=== PATIENT | female | born 1980 | race Hispanic/Latino ===

== ENCOUNTER 2023-06-01 10:54 | Emergency (ER) | payer OTHER ==
[2023-06-01] MEDS ORDERED: METOCLOPRAMIDE 10 MG/2mL INJ ONE (11:28)
[2023-06-01] MEDS ORDERED: KETOROLAC 30 MG/ML INJ ONE (11:28)
[2023-06-01] MEDS ORDERED: MECLIZINE HCL 12.5 MG TAB ONE (11:28)
[2023-06-01 11:32] LABS: Absolute Lymphocytes (CBC) 2.7 K/uL (0.7-4.9); Hematocrit 32.9 % (36.0-45.0); Lymphocytes % 31.7 % (15.3-44.8); MCV 87.1 fL (80-100); MPV 8.6 fL (7.6-11.3); Platelets 340 thou/uL (152-406); RBC Red Blood Cell Count 3.78 M/uL (3.86-4.86)
[2023-06-01 11:48] LABS: Albumin 3.4 g/dL (3.4-5.0); Bilirubin Total 0.2 mg/dL (0.2-1.0); Potassium 3.3 mEq/L (3.5-5.1)
--- NOTE | 2023-06-01 12:02 | ER ---
Nurse's Notes [facility] Name: Jacqueline Scott Age: 42 yrs Sex: Female : 1980 Arrival Date: 06/01/2023 Time: 10:54 Bed 7 Private MD: Diagnosis: Cervicalgia, migraine headache Presentation: 06/01 10:58 Coronavirus screen: At this time, the client does not indicate any symptoms associated ko1 with coronavirus-19. Ebola Screen: No symptoms or risks identified at this time. Initial Sepsis Screen: Does the patient meet any 2 criteria? No. Patient's initial sepsis screen is negative. Does the patient have a suspected source of infection? No. Patient's initial sepsis screen is negative. Risk Assessment: Do you want to hurt yourself or someone else? Patient reports no desire to harm self or others. Onset of symptoms was June 01, 2023. Care prior to arrival: IV initiated. 20 GA, in the left antecubital area, Glucose check: 85. 10:58 Acuity: CASS 3 ko1 10:58 Method Of Arrival: EMS: [facility] ko1 10:58 Chief complaint: EMS states: patient complaining of headache and dizziness. ko1 Triage Assessment: 10:58 General: Appears in no apparent distress. comfortable, Behavior is calm, cooperative, ko1 appropriate for age. 11:01 Pain: Complains of pain in forehead and left restoration. 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 - Social history:: Smoking status: Patient denies any tobacco usage or history of. Screenin:00 [facility] ED Fall Risk Assessment (Adult) History of falling in the last 3 months, ko1 including since admission No falls in past 3 months (0 pts) Confusion or Disorientation No (0 pts) Intoxicated or Sedated No (0 pts) Impaired Gait No (0 pts) Mobility Assist Device Used No (0 pt) Altered Elimination No (0 pt) Score/Fall Risk Level 0 - 2 = Low Risk Oriented to surroundings, Maintained a safe environment, Educated pt \T\ family on fall prevention, incl call for assistance when getting out of bed, Assessed \T\ reinforced patient's understanding of fall precautions, Provided non-skid footwear, Hourly rounding (assess needs \T\ fall precautionary measures) done. Abuse screen: Denies threats or abuse. Denies injuries from another. Nutritional screening: No deficits noted. Tuberculosis screening: No symptoms or risk factors identified. Assessment: 11:00 General:. Pain: Complains of pain in face and left restoration and forehead. Neuro: Reports ko1 headache in left frontal area. Cardiovascular: No deficits noted. Respiratory: No deficits noted. GI: No deficits noted. : No deficits noted. EENT: No deficits noted. Derm: No deficits noted. Musculoskeletal: No deficits noted. Vital Signs: 10:58 BP 143 / 98; Pulse 81; Resp 16; Temp 98; Pulse Ox 99% on R/A; ko1 11:45 BP 147 / 91; Pulse 98; Resp 18; Pulse Ox 100% ; ko1 12:10 BP 152 / 90; Pulse 90; Resp 16; Pulse Ox 99% ; ko1 ED Course: 10:55 Patient arrived in ED. ko1 10:56 Aashish Monahan MD is Attending Physician. jr11 10:56 Nora Salmeron RN is Primary Nurse. ko1 10:58 Arm band placed on right wrist. 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 11:00 Triage completed. ko1 11:00 Patient has correct armband on for positive identification. Bed in low position. Call ko1 light in reach. Side rails up X2. Provided Education on: na. 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 Pulse ox on. NIBP on. Door closed. Noise minimized. Lights dimmed. Warm blanket given. 11:00 Maintain EMS IV. Dressing intact. Good blood return noted. Site clean \T\ dry. Gauge \T\ ko 1 site: 20g left AC. 11:53 No provider procedures requiring assistance completed. ko1 12:10 IV discontinued, intact, bleeding controlled, No redness/swelling at site. Pressure ko1 dressing applied. Administered Medications: 11:25 Drug: Lactated Ringers Solution IV 1000 ml IV at 999 ml/hr continuous Route: IV; Rate: ko1 999 ml/hr; Site: left antecubital; 11:26 Drug: Acetaminophen PO 1000 mg PO once Route: PO; ko1 11:26 Drug: Meclizine PO 25 mg PO once Route: PO; ko1 11:28 Drug: Ketorolac IVP 10 mg 10 mg IVP once Route: IVP; Site: left antecubital; ko1 11:41 Drug: metoCLOPramide IVP 10 mg IVP once; over 1 to 2 minutes Route: IVP; Site: left ko1 antecubital; Medication: 11:00 VIS not applicable for this client. ko1 Outcome: 12:01 Discharge ordered by . paulette 12:10 Discharged to home ambulatory, with family, ko1 12:10 Condition: good 12:10 Discharge instructions given to patient, Instructed on discharge instructions, follow up and referral plans. medication usage, Demonstrated understanding of instructions, follow-up care, medications, Prescriptions given X 3, 12:18 Patient left the ED. ko1 Signatures: Aashish Monahan MD MD jr11 Nora Salmeron RN RN ko1 Corrections: (The following items were deleted from the chart) 11:52 11:00 BP 147 / 91; Pulse 98bpm; Resp 18bpm; Pulse Ox 100%; ko1 ko1
--- NOTE | 2023-06-01 12:02 | EDPHYS ---
Physician Documentation [facility] Name: Jacqueline Scott Age: 42 yrs Sex: Female : 1980 Arrival Date: 06/01/2023 Time: 10:54 Bed 7 Private MD: MICHELLE Physician Aashish Monahan HPI: 06/01 11:21 Patient is a 42-year-old female that has a history of migraine headaches, she also has jr11 a history of cervical osteophytes and arthritis, comes to us after being out of her medications, she is on gabapentin 300 once a day, cyclobenzaprine and Toradol as needed for pain. She has been out of her medications since she relocated. This pain in her neck has been causing a migraine, throbbing in nature and left-sided, currently mild to moderate pain, denies worse headache denies thunderclap. Patient is otherwise at baseline negative review of systems.. Denies exertional pain, no tearing pain, does not radiate to the back, does not cross the diaphragm. No diaphoresis, no vomiting. No syncope or near-syncope. . 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 - Social history:: Smoking status: Patient denies any tobacco usage or history of. ROS: 11:21 All other systems are negative, jr11 Exam: 11:21 Constitutional: This is a well developed, well nourished patient who is awake, alert, jr11 and in no acute distress. Head/Face: Normocephalic, atraumatic. Eyes: Extra-ocular motions intact. Lids and lashes normal. Conjunctiva and sclera are non-icteric and not injected. Cornea within normal limits. Periorbital areas with no swelling, redness, or edema. ENT: Nares patent. No nasal discharge, no septal abnormalities noted. Oropharynx with no redness, swelling, or masses, exudates, or evidence of obstruction, uvula midline. Mucous membranes moist. Chest/axilla: Normal chest wall appearance and motion. Nontender with no deformity. No lesions are appreciated. Cardiovascular: Regular rate and rhythm with a normal S1 and S2. No gallops, murmurs, or rubs. Normal PMI, no JVD. No pulse deficits. Respiratory: Lungs have equal breath sounds bilaterally, clear to auscultation and percussion. No rales, rhonchi or wheezes noted. No increased work of breathing, no retractions or nasal flaring. Abdomen/GI: Soft, non-tender, with normal bowel sounds. No distension or tympany. No guarding or rebound. No evidence of tenderness throughout. Back: No spinal tenderness. No costovertebral tenderness. Full range of motion. MS/ Extremity: Pulses equal, no cyanosis. Neurovascular intact. Full, normal range of motion. Neuro: Awake and alert, GCS 15, oriented to person, place, time, and situation. No gross motor or sensory deficits. Vital Signs: 10:58 BP 143 / 98; Pulse 81; Resp 16; Temp 98; Pulse Ox 99% on R/A; ko1 11:45 BP 147 / 91; Pulse 98; Resp 18; Pulse Ox 100% ; ko1 12:10 BP 152 / 90; Pulse 90; Resp 16; Pulse Ox 99% ; ko1 MDM: 11:09 Patient medically screened. 11 11:21 Differential Diagnosis Patient is a 42-year-old female with acute onset cervical pain, jr11 denies any trauma, states this is similar pain that she has had previously, no neuro complaints, no concern for cord compression. Patient also with a headache, denies worst denies thunderclap, no concern for bleed or any other abnormality, will treat symptomatically, reassess. Considered CT scanning however there is no trauma and there is no red flags for her headache in regards to concern for bleed. Patient agrees with plan of care, if work-up is benign, will treat symptomatically and refer her to primary care for possible joint injections or physical therapy. Patient concerned about her renal function, will also check a BMP, rule out renal failure.. Data reviewed: vital signs, nurses notes. 12:00 ED course: Pt feeling significantly better, to f/u PCP. RX given. . 11 06/01 11:10 Order name: CBC with Diff; Complete Time: :52 [facility] 06/01 11:10 Order name: CMP; Complete Time: : [facility] 06/01 11:10 Order name: IV Saline Lock; Complete Time: 11:12 jr11 06/01 11:10 Order name: Labs collected and sent; Complete Time: 11 Administered Medications: 11:25 Drug: Lactated Ringers Solution IV 1000 ml IV at 999 ml/hr continuous Route: IV; Rate: ko1 999 ml/hr; Site: left antecubital; 11:26 Drug: Acetaminophen PO 1000 mg PO once Route: PO; ko1 11:26 Drug: Meclizine PO 25 mg PO once Route: PO; ko1 11:28 Drug: Ketorolac IVP 10 mg 10 mg IVP once Route: IVP; Site: left antecubital; ko1 11:41 Drug: metoCLOPramide IVP 10 mg IVP once; over 1 to 2 minutes Route: IVP; Site: left ko1 antecubital; Disposition Summary: 06/01/23 12:01 Discharge Ordered Notes: Location: Home [facility] Condition: Stable(06/01/23 12:02) jr11 Diagnosis - Cervicalgia, migraine headache jr11 Followup: jr11 - With: Private Physician - When: 2 - 3 days - Reason: Re-evaluation by your physician Discharge Instructions: - Discharge Summary Sheet jr11 - Arthritis jr11 - Migraine Headache jr11 Forms: - Medication Reconciliation Form jr11 - Thank You Letter jr11 - Antibiotic Education jr11 - Prescription Opioid Use jr11 - Patient Portal Instructions jr11 - Leadership Thank You Letter jr11 Prescriptions: - gabapentin 300 mg Oral capsule - take 1 capsule ORAL route daily; 15 capsule; Refills: 0, Product Selection jr11 Permitted - ketorolac 10 mg Oral tablet - take 1 tablet ORAL route every 4 to 6 hours for 1 day as needed for pain; do jr11 not exceed 4 doses per 24 hrs; 20 tablet; Refills: 0, Product Selection Permitted - Cyclobenzaprine 10 mg Oral Tablet - take 1 tablet ORAL route every 8 hours As needed; 30 tablet; Refills: 0, jr11 Product Selection Permitted Signatures: Dispatcher [employer] Aashish Grubbs MD MD jr11 Nora Salmeron RN RN ko1 Corrections: (The following items were deleted from the chart) 12: 12:01 [facility] jr11
[2023-06-01 12:43] VITALS: TEMP 98
[2023-06-01 12:52] VITALS: BP 152/90; O2SAT 99
== END 2023-06-01 12:18 | disposition home or self-care (01) ==
LOC: ER 10:54
DX: G43.909 Migraine, unspecified, not intractable, without status migrainosus (principal); M54.2 Cervicalgia
CPT/HCPCS: 85025; 36415; 80053; 96375; 96374; 99285; J8597; J2765